=== PATIENT | male | born 1970 | race Caucasian/White ===

== ENCOUNTER 2020-08-30 02:53 | Inpatient (IN) | payer OTHER, SELFPAY ==
--- NOTE | ~2020-08-30 | CT_ITS ---
EXAMINATION: CT CHEST WITHOUT CONTRAST CT ABDOMEN WITHOUT CONTRAST CLINICAL INFORMATION: Patient drank bleach versus acid. Rule out perforation. COMPARISON: None. TECHNIQUE: Multidetector volumetric imaging was performed through the chest and abdomen following the administration of oral contrast only. Sagittal and coronal reformatted images were obtained on the technologist's workstation. Axial MIP volume rendering provided. This CT examination was performed using dose optimization techniques as appropriate, variously including the following: *Automated exposure control *Adjustment of mA and/or kV according to patient size (this includes techniques or standardized protocols for targeted exams where dose is matched to indication/reason for exam; i.e. extremities or head) *Use of iterative reconstruction technique DLP: 777 mGy-cm. FINDINGS: CHEST: Lungs: The central airways are patent. No consolidation. No pleural effusion or pneumothorax. There are no pulmonary parenchymal nodules. Mediastinum: The heart is of normal size. There is no pericardial effusion. Central vascular structures are unremarkable. No hilar or mediastinal lymphadenopathy. There is no pneumomediastinum. There is no extravasated contrast adjacent to the esophagus. Chest Wall/Axilla: No lymphadenopathy. No chest wall mass. ABDOMEN: Liver, Gallbladder, Biliary Tree: The liver is normal in size, shape, and attenuation. No focal hepatic lesion or biliary ductal dilatation is present. The gallbladder is unremarkable with no evidence of radiopaque gallstones, gallbladder wall thickening, or pericholecystic inflammatory changes. Pancreas: Unremarkable. Spleen: Unremarkable. Adrenal Glands: Unremarkable. Kidneys and Ureters: The kidneys are normal in size, shape, and attenuation. No hydronephrosis, hydroureter or calculi seen. No perinephric stranding. There is a prominent exophytic right upper pole 7 cm simple cyst. No follow-up recommended. Gastrointestinal Tract: Contrast within the stomach. No evidence of contrast extravasation. Normal caliber small bowel. No obstruction. Partially visualized normal appendix. The visualized colon has moderate volume of stool. No wall thickening. No free air. No free fluid. Abdominal Wall: No hernia is demonstrated. Lymphovascular Structures: Lymph nodes: Normal. Vascular: Unremarkable. OSSEOUS STRUCTURES: No suspicious sclerotic or lytic bone lesions are identified. CT/CT abdomen wo con IMPRESSION: No evidence of perforation. No pneumomediastinum. No pneumoperitoneum. No extravasation of oral contrast.
[2020-08-30 03:00] VITALS: BP 153/85; PULSE 100; RESP 16; TEMP 37.1; O2SAT 98; BMI 29.0
--- NOTE | 2020-08-30 03:00 | PC.NURSE ---
PT TO ROOM #12 AFTER FEELING NAUSEATED AND ABD PAIN. PT UNSURE IF HE TOOK BLEACH TONIGHT AROUND [id number]. PT ARRIVES ALERT, RESPIRATIONS EASY, N/L. SKIN W/[facility]. IN ROOM FOR MARY.
[2020-08-30 03:03] VITALS: BP 150/80; PULSE 102; O2SAT 98
[2020-08-30] MEDS: 0.9 % Sodium Chloride 1,000 ML 999 ML IV (03:50)
--- NOTE | 2020-08-30 03:56 | PC.NURSE ---
CALLED [facility] AND SPOKE WITH KEVAN. PT STATED JUST WATCH FOR SWOLLEN TONGUE, WATCH FOR SWELLING IN THE AIRWAY, AND PT MAY HAVE SOME BURNING/DISCOMFORT IN ABD AREA. DR JEFFERSON AWARE. PT REQUESTING WATER . HL PLACED BROKERAGE COORDINATOR, LABS BEING DRAWN AT THIS TIME. PT ALERT, [facility] [facility] SPEAKING WITH HAM PUMPER AT BEDSIDE WITH PT.
[2020-08-30 03:59] LABS: Basophils Absolute Auto 0.1 X10*3/uL (0.0-0.2); Basophils Percent Auto 0.4 % (0-2); Hematocrit 38.8 % (42-52); Hemoglobin 12.6 g/dl (14.0-18.0); Imm Gran Abs Auto 0.04 X10*3/uL (0.00-0.03); Imm Gran Pct Auto 0.3 % (0.0-0.4); Lymphocytes Absolute Auto 1.8 X10*3/uL (1.2-4.9); Lymphocytes Percent Auto 14.8 % (20-40); MANUAL DIFF FLAG NO; Mean Corpuscular HGB Conc 32.5 g/dl (31.0-36.0); Mean Corpuscular Volume 89.2 fL (80-98); Mean Platelet Volume 10.5 fL (9.4-12.4); Monocytes Absolute Auto 0.8 X10*3/uL (0.1-1.2); Monocytes Percent Auto 6.3 % (2-11); Neutrophils Absolute Auto 9.6 X10*3/uL (2.0-8.3); Neutrophils Percent Auto 78.2 % (45-73); Platelet Count 218 X10*3/uL (160-400); Red Blood Count 4.35 X10*6/uL (4.60-5.80); Red Cell Distribution Width 14.9 % (11.0-16.0); White Blood Count 12.3 X10*3/uL (4.8-10.8)
[2020-08-30 04:19] LABS: Ethanol < 10 mg/dL
[2020-08-30 04:22] LABS: Alanine Aminotransferase 27 U/L (0-40); Albumin Level 4.1 g/dL (3.5-5.0); Alkaline Phosphatase 72 U/L (39-117); Anion Gap 17 (12-20); Aspartate Amino Transferase 20 U/L (5-37); Bilirubin Total 0.3 mg/dL (0.0-1.0); Blood Urea Nitrogen 13 mg/dL (9-16); Calcium 8.6 mg/dL (8.4-10.2); Carbon Dioxide 22 mmol/L (22-29); Chloride 109 mmol/L (96-108); Creatinine Clr Calc Pharmacy 83.5; Estimated Glomerular Filt Rate > 60; Glucose Random 107 mg/dL (60-115); Lipase 5 U/L (8-78); Potassium 4.3 mmol/L (3.3-5.1); Sodium 144 mmol/L (135-145); Total Protein 7.1 g/dL (6.5-8.0)
--- NOTE | 2020-08-30 05:12 | ED_ITS ---
HPI - General Adult General Chief complaint: Abdominal Pain Stated complaint: Abdominal Pain Time Seen by Provider: 08/30/20 04:43 Source: patient Mode of arrival: EMS Limitations: no limitations History of Present Illness HPI narrative: Patient comes emergency room complaining of severe esophageal and epigastric pain. Patient states that he was very tired, there were several bottles of water in the stand, grabbed 1, started drinking. Patient states that he had at least 3-5 gulps, states the fluid tasted ?funny?. Within 30 seconds, he experience severe burning from the mouth, down to esophagus down to his abdomen. Patient complaining of ongoing burning sensation especially his stomach. Patient made himself vomit 1 time, no blood visualized by the patient. Related Data Allergies Allergy/AdvReac Type Severity Reaction Status Date / Time tramadol [TRAMADOL] AdvReac Intermediate NAUSEA, Unverified 01/19/20 19:12 HALLUCINATIONS ibuprofen [From MOTRIN] AdvReac Mild NAUSEA Unverified 01/19/20 19:12 Review of Systems Review of Systems: Constitutional : No Weight loss, No Fever, No Chills, No Night Sweats, No Fatigue, No Malaise ENT/Mouth : No Hearing loss, No Ear Pain, No Nasal Congestion, No Sinus Pain, No Hoarseness, No sore throat, No Rhinorrhea, No Swallowing Difficulty Eyes: No Eye Pain, No Swelling, No Redness, No Foreign Body, No Discharge, No Vision Changes Cardiovascular : No Chest Pain, No SOB, No Dyspnea on Exertion, No Orthopnea, No Edema, No Palpitations Respiratory : No Cough, No Sputum, No Wheezing, No Smoke Exposure, No Dyspnea Gastrointestinal : Patient soft induced vomit, No Diarrhea, No Constipation, complaining of burning in the esophagus and stomach, No Hematochezia, No Melena Genitourinary : no irregular bleeding, No Dysuria, No Urinary Frequency, No Hematuria, No Urinary Incontinence, No Urgency, No Flank Pain, No Urinary Flow Changes, No Hesitancy Musculoskeletal : No joint pain, No Myalgias, No Joint Swelling Skin : No Skin Lesions, No rash Neuro : No Weakness, No Numbness, No Paresthesias, No Loss of Consciousness, No Dizziness, No Headache Psych : No Anxiety/Panic, No Depression, No SI/HI/AH/VH, No Social Issues, Heme/Lymph: No Bruising, No Bleeding,No Lymphadenopathy Endocrine : No Polyuria, No Polydipsia, No Temperature Intolerance [facility] Social History Social History Advance Directives: No Physical Exam Vital Signs: Vital Signs: Last Vital Signs Temp 98.8 F 08/30/20 03:00 Pulse 82 08/30/20 07:25 Resp 18 08/30/20 07:25 BP 151/87 H 08/30/20 07:25 Pulse Ox 98 08/30/20 07:25 Body Mass Index 29.0 Appearance: Alert. Oriented X3. No acute distress. Well-appearing Eyes: Pupils equal, round and reactive to light. ENT: Pharynx normal. No burn warner, no lacerations, no discoloration Neck: Normal inspection. Neck supple. No lymph nodes noted. No crepitus CVS: Normal heart rate and rhythm. Pulses normal. Normal S1 and S2 Respiratory: No respiratory distress. Breath sounds normal. No Wheezing. No rales Abdomen: Soft , mild pain to palpation over the epigastric area. No rigidity. No distention. good BS x4 Skin: Skin warm and dry. Normal skin color. Normal skin turgor. Extremities: No lower extremity edema. No lower extremity edema. No Lacerations. No Rash Neuro: Oriented X 3. No motor deficit. No sensory deficit. Moving all extermities. No slurred speech. Course Course Course Narrative: Patient's physical exam is relatively benign. Patient is well-appearing. At this time, I do not suspect that the patient ingested bleach versus acid. Patient's labs for chemistry are relatively normal. I discussed with Dr. Andersen from [facility], the best imaging to assess any damage, we will go ahead and order a CT scan with oral contrast. Poison Control has been contacted, no immediate recommendations have been made. I discussed the labs and imaging with the patient, no acute findings. Patient likely ingested a solvent which was not concentrated versus drank water and patient has gastritis versus peptic ulcer disease. I discussed the labs imaging with the patient, patient will get now a GI cocktail. Patient states now that he is very depressed, denies suicidal homicidal ideation. Patient states that he is very concerned about his mother's health that is currently hospitalized due to diabetes Of note, throughout the patient's ED stay, we asked the patient multiple times he drank the solvent/beach on purpose, multiple times he denied it. However, a s patient was being discharged, patient changed his story. Patient now states that he did on purpose drink bleach to hurt himself. However, based on his labs and imaging, it is unlikely that patient drank bleach Patient consult pending. Sign-out given to Dr. Fagan Medical Decision Making Lab Data Result diagrams: 08/30/20 03:52 08/30/20 03:52 Labs: Lab Results 08/30/20 08/30/20 08/30/20 Range/Units 03:52 03:52 03:52 WBC 12.3 H (4.8-10.8) X10*3/uL RBC 4.35 L (4.60-5.80) X10*6/uL Hgb 12.6 L (14.0-18.0) g/dl Hct 38.8 L (42-52) % MCV 89.2 (80-98) fL MCH 29.0 (27.0-33.0) pg MCHC 32.5 (31.0-36.0) g/dl RDW 14.9 (11.0-16.0) % Plt Count 218 (160-400) X10*3/uL MPV 10.5 (9.4-12.4) fL Immature Gran % (Auto) 0.3 (0.0-0.4) % Neut % (Auto) 78.2 H (45-73) % Lymph % (Auto) 14.8 L (20-40) % [place] % (Auto) 6.3 (2-11) % Eos % (Auto) 0.0 (0-4) % Baso % (Auto) 0.4 (0-2) % Lymph # (Auto) 1.8 (1.2-4.9) X10*3/uL [place] # (Auto) 0.8 (0.1-1.2) X10*3/uL Eos # (Auto) 0.0 (0.0-0.4) X10*3/uL Baso # (Auto) 0.1 (0.0-0.2) X10*3/uL Abs Immat Gran (auto) 0.04 H (0.00-0.03) X10*3/uL Absolute Neuts (auto) 9.6 H (2.0-8.3) X10*3/uL Absolute Nucleated RBC 0.000 (0.0-0.012) X10*3/uL Nucleated RBC % (auto) 0.0 (0.0-0.2) /100WBC Hold Blue Top SEE NOTE Sodium 144 (135-145) mmol/L Potassium 4.3 (3.3-5.1) mmol/L Chloride 109 H (96-108) mmol/L Carbon Dioxide 22 (22-29) mmol/L Anion Gap 17 (12-20) BUN 13 (9-16) mg/dL Creatinine 1.05 (0.5-1.4) mg/dL Estim Creat Clear Calc 83.5 Estimated GFR > 60 Random Glucose 107 (60-115) mg/dL Calcium 8.6 (8.4-10.2) mg/dL Total Bilirubin 0.3 (0.0-1.0) mg/dL AST 20 (5-37) U/L ALT 27 (0-40) U/L Alkaline Phosphatase 72 (39-117) U/L Total Protein 7.1 (6.5-8.0) g/dL Albumin 4.1 (3.5-5.0) g/dL Lipase 5 L (8-78) U/L Ethyl Alcohol mg/dL 08/30/20 Range/Units 03:52 WBC (4.8-10.8) X10*3/uL RBC (4.60-5.80) X10*6/uL Hgb (14.0-18.0) g/dl Hct (42-52) % MCV (80-98) fL MCH (27.0-33.0) pg MCHC (31.0-36.0) g/dl RDW (11.0-16.0) % Plt Count (160-400) X10*3/uL MPV (9.4-12.4) fL Immature Gran % (Auto) (0.0-0.4) % Neut % (Auto) (45-73) % Lymph % (Auto) (20-40) % [place] % (Auto) (2-11) % Eos % (Auto) (0-4) % Baso % (Auto) (0-2) % Lymph # (Auto) (1.2-4.9) X10*3/uL [place] # (Auto) (0.1-1.2) X10*3/uL Eos # (Auto) (0.0-0.4) X10*3/uL Baso # (Auto) (0.0-0.2) X10*3/uL Abs Immat Gran (auto) (0.00-0.03) X10*3/uL Absolute Neuts (auto) (2.0-8.3) X10*3/uL Absolute Nucleated RBC (0.0-0.012) X10*3/uL Nucleated RBC % (auto) (0.0-0.2) /100WBC Hold Blue Top Sodium (135-145) mmol/L Potassium (3.3-5.1) mmol/L Chloride (96-108) mmol/L Carbon Dioxide (22-29) mmol/L Anion Gap (12-20) BUN (9-16) mg/dL Creatinine (0.5-1.4) mg/dL Estim Creat Clear Calc Estimated GFR Random Glucose (60-115) mg/dL Calcium (8.4-10.2) mg/dL Total Bilirubin (0.0-1.0) mg/dL AST (5-37) U/L ALT (0-40) U/L Alkaline Phosphatase (39-117) U/L Total Protein (6.5-8.0) g/dL Albumin (3.5-5.0) g/dL Lipase (8-78) U/L Ethyl Alcohol < 10 mg/dL Imaging Data Chest and abdomen CT: Radiologist's impression: CHEST: Lungs: The central airways are patent. No consolidation. No pleural effusion or pneumothorax. There are no pulmonary parenchymal nodules. Mediastinum: The heart is of normal size. There is no pericardial effusion. Central vascular structures are unremarkable. No hilar or mediastinal lymphadenopathy. There is no pneumomediastinum. There is no extravasated contrast adjacent to the esophagus. Chest Wall/Axilla: No lymphadenopathy. No chest wall mass. ABDOMEN: Liver, Gallbladder, Biliary Tree: The liver is normal in size, shape, and attenuation. No focal hepatic lesion or biliary ductal dilatation is present. The gallbladder is unremarkable with no evidence of radiopaque gallstones, gallbladder wall thickening, or pericholecystic inflammatory changes. Pancreas: Unremarkable. Spleen: Unremarkable. Adrenal Glands: Unremarkable. Kidneys and Ureters: The kidneys are normal in size, shape, and attenuation. No hydronephrosis, hydroureter or calculi seen. No perinephric stranding. There is a prominent exophytic right upper pole 7 cm simple cyst. No follow-up recommended. Gastrointestinal Tract: Contrast within the stomach. No evidence of contrast extravasation. Normal caliber small bowel. No obstruction. Partially visualized normal appendix. The visualized colon has moderate volume of stool. No wall thickening. No free air. No free fluid. Abdominal Wall: No hernia is demonstrated. Lymphovascular Structures: Lymph nodes: Normal. Vascular: Unremarkable. OSSEOUS STRUCTURES: No suspicious sclerotic or lytic bone lesions are identified. CT/CT abdomen wo con IMPRESSION: No evidence of perforation. No pneumomediastinum. No pneumoperitoneum. No extravasation of oral contrast. ECG Data Attestation: I personally reviewed and interpreted this ECG as follows: (Heart rate 84, normal sinus rhythm, no ST segment depression or elevation, no T-wave inversion, QTC 475) Discharge Plan Discharge Clinical Impression: Abdominal pain, Ingestion of unknown substance Instructions: Abdominal Pain (ED) Additional Instructions: Please be careful with the liquids that you ingest. Please follow-up with your primary care physician tomorrow. If you have any worsening or new symptoms, please return to the emergency room or call 911
[2020-08-30] MEDS: ondansetron HCL 4 MG/2 ML VIAL IVPUSH (05:25)
[2020-08-30] MEDS: Barium Sulfate Oral (Mocha) 450 ML ORAL.SUSP PO (05:34)
--- NOTE | 2020-08-30 05:50 | PC.NURSE ---
PT AMBULATES TO X-RAY WITH STEADY EVEN GAIT.
--- NOTE | 2020-08-30 07:03 | ECG_ITS ---
Test Reason : ABDOMINAL PAIN Blood Pressure : / mmHG Vent. Rate : 084 BPM Atrial Rate : 084 BPM P-R Int : 122 ms QRS Dur : 086 ms QT Int : 402 ms P-R-T Axes : 048 029 043 degrees QTc Int : 475 ms Normal sinus rhythm Normal ECG No previous ECGs available Referred By: Miriam Sharpe Electronically Signed By:IVAN CARDOZA MD
[2020-08-30 07:25] VITALS: BP 151/87; PULSE 82; RESP 18; O2SAT 98
[2020-08-30] MEDS: Magnesium Hydrox/Alum Hydrox 30 ML ORAL.SUSP PO (07:35)
[2020-08-30] MEDS: Lidocaine HCl Viscous 2 % 15 ML SOLUTION MUCOUS MEM (07:35)
--- NOTE | 2020-08-30 07:48 | PC.NURSE ---
patient was ready for dc. this rn received call from [facility] saying patient had claled them due to him being concerned about being dc and continued to have thoughts of self harm. rn in to room. patient admitted he did not tell anyone when he initially came into ed that he drank bleach in order to harm himself, admits to SI. made aware. patient will be seen by n while in ED.
[2020-08-30 08:31] LABS: Appearance Urine CLEAR; Color Urine YELLOW; Glucose Urine UA NEG (NEG); Leukocyte Esterase Urine NEG (NEG); Nitrite Urine NEG (NEG); Specific Gravity - Urine >= 1.030 (1.005-1.025); Urine Blood NEG (NEG); Urine Ketones 15 MG/DL (NEG); Urine Protein NEG (NEG-TRACE)
[2020-08-30 09:01] LABS: Amphetamine Screen Urine Not Detected (Not Detect); Barbiturates, Urine Not Detected (Not Detect); Benzodiazepines Screen Urine Not Detected (Not Detect); Cannabinoid Screen Urine Not Detected (Not Detect); Cocaine Screen Urine POSITIVE (Not Detect); Opiate Screen Urine Not Detected (Not Detect); Phencyclidine Screen Urine Not Detected (Not Detect)
[2020-08-30 09:39] VITALS: BP 142/80; PULSE 83; RESP 16; O2SAT 96
--- NOTE | 2020-08-30 10:40 | PC.NURSE ---
pt ambulated to pod, report from justin, used the phone , pleasant and cooperative, shearing shed hand used due to language barrier, aware of care plan
--- NOTE | 2020-08-30 15:46 | PC.NURSE ---
Report received. Pt currently using the bathroom, no complaints at this time, calm and cooperative.
[2020-08-30 16:21] VITALS: BP 139/82; PULSE 69; RESP 18; TEMP 36.1; O2SAT 98
--- NOTE | 2020-08-30 17:09 | PC.NURSE ---
WILLY faxed and called, reports that a clinician is on the way now.
[2020-08-30 17:38] LABS: COVID-19 Test Negative (Negative)
--- NOTE | 2020-08-30 17:52 | PC.NURSE ---
AZAELN meeting with pt at bedside
[2020-08-30] MEDS: QUEtiapine Fumarate 50 MG TABLET PO (19:46)
[2020-08-31 06:29] VITALS: BP 116/73; PULSE 61; RESP 17; TEMP 37; O2SAT 99
--- NOTE | 2020-08-31 07:17 | PC.NURSE ---
Report received from PRINCESS Dickson. Pt resting, resp unlabored.
--- NOTE | 2020-08-31 09:03 | PC.NURSE ---
Pt resting, resp unlabored.
[2020-08-31] MEDS: Sertraline HCL 50 MG TABLET PO (10:26)
[2020-08-31] MEDS: Erythromycin Base 0.5% Oph Oin 1 GM TUBE 1 CM EYE-BOTH ×2 (10:45→21:05)
--- NOTE | 2020-08-31 10:46 | PC.NURSE ---
Pt awakened for vitals and medication- pt alert, easily tearful, feeling overwhelmed by family stressors, began to be tearful when talking about his mother. Pt aware that he is awaiting inpatient bed, states he is all right with that.
[2020-08-31 14:00] VITALS: RESP 20
--- NOTE | 2020-08-31 14:29 | PC.NURSE ---
Pt resting, resp unlabored.
--- NOTE | 2020-08-31 16:05 | PC.NURSE ---
Cloud Administrator called to evaluate pt.
[2020-08-31] MEDS: QUEtiapine Fumarate 50 MG TABLET PO (17:05)
--- NOTE | 2020-08-31 17:07 | PC.NURSE ---
Pt evaluated w/ litigation manager present- pt reports continued depression, ruminating, unable to relax as he is unable to stop thinking about ewxternal stressors. Pt states he was able to eat lunch. No report of pain or other concerns at this time. Pt given prn as requested.
[2020-08-31 17:08] VITALS: BP 127/71; PULSE 65; RESP 18; TEMP 36.4; O2SAT 95
--- NOTE | 2020-08-31 18:00 | PC.NURSE ---
Pt resting, resp unlabored.
--- NOTE | 2020-08-31 19:12 | PC.NURSE ---
Report received. PT is sleeping in room. Respirations even and unlabored. PT is inpatient bed search.
[2020-08-31] MEDS: traZODone HCL 50 MG TABLET 150 MG PO (21:03)
[2020-08-31 21:04] VITALS: BP 110/72; PULSE 72
[2020-08-31] MEDS: Prazosin HCL 1 MG CAPSULE PO (21:04)
[2020-08-31] MEDS: QUEtiapine Fumarate 200 MG TABLET PO (21:04)
[2020-08-31 21:05] VITALS: BP 110/72; PULSE 72; RESP 18; TEMP 36.7; O2SAT 98
[2020-09-01] VITALS: RESP 15
[2020-09-01 06:00] VITALS: BP 100/65; PULSE 65; RESP 16; TEMP 36.6; O2SAT 96
--- NOTE | 2020-09-01 07:09 | PC.NURSE ---
patient appears to be sleeping at present, received report from night RN patient presents with even unlabored respirations, patient has inpatient bed search.
[2020-09-01 09:19] VITALS: BP 115/67; PULSE 70; RESP 15; TEMP 36.7; O2SAT 95
[2020-09-01] MEDS: Sertraline HCL 50 MG TABLET PO (09:50)
[2020-09-01] MEDS: Erythromycin Base 0.5% Oph Oin 1 GM TUBE 1 CM EYE-BOTH ×2 (09:51→20:32)
--- NOTE | 2020-09-01 11:33 | PC.NURSE ---
BHN to see patient now for evaluation, patient consistently resting
--- NOTE | 2020-09-01 19:02 | PC.NURSE ---
Report received. PT is sleeping in bed. Respirations even and unlabored. PT is inpatient bed search.
[2020-09-01 19:42] VITALS: BP 129/76; PULSE 70; RESP 14; TEMP 37.3; O2SAT 96
[2020-09-01 20:32] VITALS: BP 129/76; PULSE 70
[2020-09-01] MEDS: traZODone HCL 50 MG TABLET 150 MG PO (20:32)
[2020-09-01] MEDS: QUEtiapine Fumarate 200 MG TABLET PO (20:32)
[2020-09-01] MEDS: Prazosin HCL 1 MG CAPSULE PO (20:32)
[2020-09-02 06:00] VITALS: BP 108/73; PULSE 60; RESP 16; TEMP 37; O2SAT 99
--- NOTE | 2020-09-02 06:57 | PC.NURSE ---
report received from previous night nurse, patient appears to be sleeping in bed presently with even unlabored breaths, pt awaitng inpatient placement. pt exhibiting safe behavior
[2020-09-02 08:30] VITALS: BP 109/60; PULSE 61; RESP 17; TEMP 37.1; O2SAT 98
[2020-09-02] MEDS: Erythromycin Base 0.5% Oph Oin 1 GM TUBE 1 CM EYE-BOTH ×2 (09:02→20:43)
[2020-09-02] MEDS: Sertraline HCL 50 MG TABLET PO (09:02)
--- NOTE | 2020-09-02 16:46 | PC.NURSE ---
patient up to shower independently
[2020-09-02 17:03] VITALS: BP 96/62; PULSE 107; RESP 20; TEMP 36.2; O2SAT 96
--- NOTE | 2020-09-02 19:05 | PC.NURSE ---
Report received. PT is sleeping in bed. Respirations even and unlabored. PT is inpatient bed search.
[2020-09-02 20:43] VITALS: BP 134/80; PULSE 68
[2020-09-02] MEDS: Prazosin HCL 1 MG CAPSULE PO (20:43)
[2020-09-02] MEDS: traZODone HCL 50 MG TABLET 150 MG PO (20:43)
[2020-09-02] MEDS: QUEtiapine Fumarate 200 MG TABLET PO (20:43)
[2020-09-02 20:53] VITALS: BP 134/80; PULSE 68; RESP 20; TEMP 37; O2SAT 98
[2020-09-03] VITALS (8 sets, daily range): BP systolic 102–139; BP diastolic 56–85; PULSE 58–98; RESP 14–20; TEMP 36.8–37.2; O2SAT 96–98
--- NOTE | 2020-09-03 07:14 | PC.NURSE ---
Report received from PRINCESS Francis. Pt resting, resp unlabored.
[2020-09-03] MEDS: Sertraline HCL 50 MG TABLET PO (08:24)
[2020-09-03] MEDS: Erythromycin Base 0.5% Oph Oin 1 GM TUBE 1 CM EYE-BOTH ×2 (09:53→20:25)
--- NOTE | 2020-09-03 10:30 | PC.NURSE ---
Pt resting, resp unlabored.
--- NOTE | 2020-09-03 13:13 | PC.NURSE ---
Pt showering at this time. Pt previously out in common area, conversing w/ other pt.
--- NOTE | 2020-09-03 14:35 | PC.NURSE ---
Pt resting, resp unlabored
[2020-09-03] MEDS: QUEtiapine Fumarate 50 MG TABLET PO (15:40)
--- NOTE | 2020-09-03 15:52 | PC.NURSE ---
Pt evaluated w/ certified court interpreter present. Pt denies SI, but reports he feels that if he were on the street this might change. Pt reports having racing thoughts and stress- educated re: availability of PRN medication- pt requesting PRN medication for racing thoughts.
--- NOTE | 2020-09-03 18:20 | PC.NURSE ---
Pt OOB, conversing w/ patient, no concerns reported.
[2020-09-03] MEDS: Prazosin HCL 1 MG CAPSULE PO (20:25)
[2020-09-03] MEDS: QUEtiapine Fumarate 200 MG TABLET PO (20:25)
[2020-09-03] MEDS: traZODone HCL 50 MG TABLET 150 MG PO (20:25)
--- NOTE | 2020-09-03 21:10 | PC.NURSE ---
Patient calm and quiet, mood pleasant, compliant with HS medication including his eye ointment, appetite good per patient, denied distress at this time, N saw the patient for MSU, disposition remained same, section 12 inpatient bed search, will continue to monitor.
[2020-09-04 06:38] VITALS: BP 114/66; PULSE 65; RESP 16; TEMP 36.4; O2SAT 97
[2020-09-04] MEDS: Erythromycin Base 0.5% Oph Oin 1 GM TUBE 1 CM EYE-BOTH ×2 (09:04→20:36)
[2020-09-04] MEDS: Sertraline HCL 50 MG TABLET PO (09:04)
--- NOTE | 2020-09-04 10:23 | PC.NURSE ---
PATIENT SLEEPING MOST OF THE MORNING. WOKE EAISILY AND TOOK MORNING MED. EYE OINTMENT APPLIED TO LEFT EYE. CALM AND COOPERATIVE. BED SEARCH CONTINUES.
[2020-09-04] MEDS: QUEtiapine Fumarate 50 MG TABLET PO (15:27)
[2020-09-04 17:36] VITALS: BP 114/73; PULSE 70; RESP 16; TEMP 36.5; O2SAT 97
[2020-09-04] MEDS: QUEtiapine Fumarate 200 MG TABLET PO (20:35)
[2020-09-04] MEDS: traZODone HCL 50 MG TABLET 150 MG PO (20:35)
[2020-09-04 20:36] VITALS: BP 138/87; PULSE 99
[2020-09-04] MEDS: Prazosin HCL 1 MG CAPSULE PO (20:36)
[2020-09-05 02:59] VITALS: BP 116/69; PULSE 62; RESP 17; TEMP 36.5; O2SAT 97
--- NOTE | 2020-09-05 06:56 | PC.NURSE ---
report taken from cortney greco pt resting in room in bed, rr even/unlabored. appears calm and cooperative. awaiting inpt bed. wctm.
[2020-09-05] MEDS: Erythromycin Base 0.5% Oph Oin 1 GM TUBE 1 CM EYE-BOTH ×2 (08:24→21:34)
[2020-09-05] MEDS: Sertraline HCL 50 MG TABLET PO (08:25)
[2020-09-05 09:43] VITALS: BP 113/63; PULSE 63; RESP 18; TEMP 36.8; O2SAT 99
--- NOTE | 2020-09-05 11:02 | PC.NURSE ---
pt and other pt in pod educated about multiple pts in pt room. d/t high pt population and multiple pts without rooms sleeping in [facility] areas, pts allowed to watch television in room together w masks on and w 1:1 sitter in supervision of pts in room. pts agreeable to these parameters and mary ellen for safety w this rn.
--- NOTE | 2020-09-05 13:08 | PC.NURSE ---
report given to haresh anthony rn
[2020-09-05 18:00] VITALS: BP 120/76; PULSE 78; RESP 14; TEMP 36.8; O2SAT 98
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
[2020-09-05 18:24] VITALS: BMI 30.2
[2020-09-05 21:32] VITALS: BP 110/69; PULSE 68
[2020-09-05] MEDS: Prazosin HCL 1 MG CAPSULE PO (21:32)
[2020-09-05] MEDS: QUEtiapine Fumarate 200 MG TABLET PO (21:33)
[2020-09-05] MEDS: traZODone HCL 50 MG TABLET 150 MG PO (21:33)
[2020-09-06 07:00] VITALS: BMI 30.2
[2020-09-06 07:30] VITALS: BP 106/55; PULSE 66; RESP 16; TEMP 36.6; O2SAT 99
[2020-09-06] MEDS: Sertraline HCL 50 MG TABLET PO (08:29)
[2020-09-06] MEDS: Erythromycin Base 0.5% Oph Oin 1 GM TUBE 1 CM EYE-BOTH ×2 (08:29→20:51)
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
[2020-09-06] MEDS: Magnesium Hydrox/Alum Hydrox 30 ML ORAL.SUSP PO (14:49)
[2020-09-06 14:56] VITALS: BP 103/64; PULSE 75; RESP 16
[2020-09-06 20:45] VITALS: BP 103/58; PULSE 90; TEMP 36.5
[2020-09-06 20:52] VITALS: BP 103/58; PULSE 90
[2020-09-06] MEDS: Prazosin HCL 1 MG CAPSULE PO (20:52)
[2020-09-06] MEDS: traZODone HCL 50 MG TABLET 150 MG PO (20:52)
[2020-09-06] MEDS: QUEtiapine Fumarate 200 MG TABLET PO (20:54)
[2020-09-07 06:20] VITALS: BP 122/61; PULSE 68; RESP 18; TEMP 36.6; O2SAT 98
[2020-09-07] MEDS: Sertraline HCL 50 MG TABLET PO (08:25)
[2020-09-07] MEDS: Erythromycin Base 0.5% Oph Oin 1 GM TUBE 1 CM EYE-BOTH ×2 (08:25→21:23)
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
[2020-09-07] MEDS: Magnesium Hydrox/Alum Hydrox 30 ML ORAL.SUSP PO (11:41)
[2020-09-07] MEDS: QUEtiapine Fumarate 50 MG TABLET PO (14:21)
[2020-09-07 17:24] VITALS: BP 120/70; PULSE 80; RESP 18; TEMP 36.9; O2SAT 98
[2020-09-07 21:23] VITALS: BP 116/68; PULSE 72
[2020-09-07] MEDS: traZODone HCL 50 MG TABLET 150 MG PO (21:23)
[2020-09-07] MEDS: Prazosin HCL 1 MG CAPSULE PO (21:23)
[2020-09-07] MEDS: QUEtiapine Fumarate 200 MG TABLET PO (21:23)
[2020-09-08 06:00] VITALS: BP 118/60; PULSE 67; RESP 16; TEMP 36.6; O2SAT 96
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
[2020-09-08] MEDS: Erythromycin Base 0.5% Oph Oin 1 GM TUBE 1 CM EYE-BOTH ×2 (09:28→21:46)
[2020-09-08] MEDS: Sertraline HCL 50 MG TABLET PO (09:29)
[2020-09-08 18:00] VITALS: BP 126/74; PULSE 72; RESP 18; TEMP 36.6; O2SAT 97
[2020-09-08] MEDS: traZODone HCL 50 MG TABLET 150 MG PO (21:45)
[2020-09-08 21:46] VITALS: BP 122/80; PULSE 64
[2020-09-08] MEDS: Prazosin HCL 1 MG CAPSULE 2 MG PO (21:46)
[2020-09-08] MEDS: QUEtiapine Fumarate 200 MG TABLET PO (21:47)
[2020-09-09 06:00] VITALS: BP 110/57; PULSE 61; RESP 16; TEMP 36.3; O2SAT 97
[2020-09-09] MEDS: Erythromycin Base 0.5% Oph Oin 1 GM TUBE 1 CM EYE-BOTH ×2 (08:05→21:03)
[2020-09-09] MEDS: Sertraline HCL 50 MG TABLET PO (08:05)
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
[2020-09-09] MEDS: QUEtiapine Fumarate 50 MG TABLET PO (11:58)
[2020-09-09 17:05] VITALS: BP 133/74; PULSE 79; RESP 18; TEMP 36.7; O2SAT 97
[2020-09-09 21:02] VITALS: BP 122/77; PULSE 72
[2020-09-09] MEDS: traZODone HCL 50 MG TABLET 150 MG PO (21:02)
[2020-09-09] MEDS: Prazosin HCL 1 MG CAPSULE 2 MG PO (21:02)
[2020-09-09] MEDS: QUEtiapine Fumarate 200 MG TABLET PO (21:02)
[2020-09-10 06:50] VITALS: BP 122/74; PULSE 62; RESP 16; TEMP 36.2; O2SAT 95
[2020-09-10] MEDS: Sertraline HCL 50 MG TABLET 75 MG PO (08:31)
[2020-09-10] MEDS: Erythromycin Base 0.5% Oph Oin 1 GM TUBE 1 CM EYE-BOTH ×2 (08:31→22:26)
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
[2020-09-10] MEDS: QUEtiapine Fumarate 50 MG TABLET PO (14:22)
[2020-09-10 18:00] VITALS: BP 146/78; PULSE 74; TEMP 35.9
[2020-09-10 22:25] VITALS: BP 146/74; PULSE 74
[2020-09-10] MEDS: Prazosin HCL 1 MG CAPSULE 2 MG PO (22:25)
[2020-09-10] MEDS: QUEtiapine Fumarate 200 MG TABLET PO (22:26)
[2020-09-10] MEDS: traZODone HCL 50 MG TABLET 150 MG PO (22:26)
[2020-09-11 06:50] VITALS: BP 112/62; PULSE 71; RESP 18; TEMP 36.7; O2SAT 97
[2020-09-11] MEDS: Sertraline HCL 50 MG TABLET 75 MG PO (09:29)
[2020-09-11] MEDS: Erythromycin Base 0.5% Oph Oin 1 GM TUBE 1 CM EYE-BOTH ×2 (09:30→22:59)
[2020-09-11] MEDS: Acetaminophen 325 MG TABLET 650 MG PO ×2 (12:14→23:03)
[2020-09-11] MEDS: QUEtiapine Fumarate 50 MG TABLET PO (12:14)
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
[2020-09-11 22:00] VITALS: BP 126/71; PULSE 75; TEMP 36.4; O2SAT 98
[2020-09-11] MEDS: QUEtiapine Fumarate 200 MG TABLET PO (22:58)
[2020-09-11 22:59] VITALS: BP 126/71; PULSE 75
[2020-09-11] MEDS: traZODone HCL 50 MG TABLET 150 MG PO (22:59)
[2020-09-11] MEDS: Prazosin HCL 1 MG CAPSULE 3 MG PO (22:59)
[2020-09-12] MEDS: QUEtiapine Fumarate 50 MG TABLET PO (03:37)
[2020-09-12] MEDS: Melatonin 3 MG TABLET PO (03:37)
[2020-09-12 03:40] VITALS: BP 116/63; PULSE 113; RESP 16; TEMP 36.7; O2SAT 98
[2020-09-12] MEDS: Erythromycin Base 0.5% Oph Oin 1 GM TUBE 1 CM EYE-BOTH ×2 (08:29→21:52)
[2020-09-12] MEDS: Sertraline HCL 50 MG TABLET 75 MG PO (08:29)
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
[2020-09-12 17:16] VITALS: BP 114/72; PULSE 77; RESP 18; TEMP 36.4; O2SAT 97
[2020-09-12] MEDS: Acetaminophen 325 MG TABLET 650 MG PO (18:33)
[2020-09-12] MEDS: QUEtiapine Fumarate 200 MG TABLET PO (21:52)
[2020-09-12 21:53] VITALS: BP 119/63; PULSE 69
[2020-09-12] MEDS: Prazosin HCL 1 MG CAPSULE 4 MG PO (21:53)
[2020-09-12] MEDS: traZODone HCL 50 MG TABLET 150 MG PO (21:53)
[2020-09-13 06:40] VITALS: BP 116/72; PULSE 67; RESP 20; TEMP 37.2
[2020-09-13 07:00] VITALS: BMI 30.7
[2020-09-13] MEDS: Sertraline HCL 50 MG TABLET 75 MG PO (08:30)
[2020-09-13] MEDS: Erythromycin Base 0.5% Oph Oin 1 GM TUBE 1 CM EYE-BOTH (08:32)
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
== END 2020-09-13 14:00 | disposition home or self-care (01) | DRG 754 ==
LOC: HO.ED 10:16 → HO.PM5 09-05 12:38
PROVIDERS: Admitting Provider Psychiatry & Neurology Psychiatry; Emergency Provider Emergency Medicine; Visit Provider Psychiatry & Neurology Psychiatry
DX: F32.9 Major depressive disorder, single episode, unspecified (principal); R45.851 Suicidal ideations; F10.21 Alcohol dependence, in remission; F17.210 Nicotine dependence, cigarettes, uncomplicated; F43.12 Post-traumatic stress disorder, chronic; H02.005 Unspecified entropion of left lower eyelid; F14.10 Cocaine abuse, uncomplicated; Z20.822 Contact with and (suspected) exposure to COVID-19; Z59.0 Homelessness; Z91.5 Personal history of self-harm; Z71.6 Tobacco abuse counseling; Z88.5 Allergy status to narcotic agent; Z88.6 Allergy status to analgesic agent; Z79.899 Other long term (current) drug therapy
CPT/HCPCS: 36415; 71250; 74150; 80053; 80307; 80320; 81003; 83690; 85025; 87635; 93005; 96374; 99285; J2405